=== PATIENT | male | born 1955 | race Caucasian/White ===

== ENCOUNTER → 2018-05-15 12:55 | Outpatient (CLI) | payer OTHER, SELFPAY ==
[2018-05-15 13:59] LABS: Alanine Aminotransferase 32 IU/L (21-72); Albumin 4.1 g/dL (3.5-5.0); Albumin Globulin Ratio 1.6 (1.0-2.8); Alkaline Phosphatase 52 U/L (38-126); Aspartate Aminotransferase 23 IU/L (17-59); BUN Creatinine Ratio 17.3 (6-22); Bilirubin Total 0.4 mg/dL (0.2-1.3); Blood Urea Nitrogen 19 mg/dL (9-20); Calcium 9.7 mg/dL (8.4-10.2); Carbon Dioxide 29 mmol/L (22-32); Chloride 106 mmol/L (98-107); Cholesterol 148 mg/dL (140-199); Estimated Glomerular Filt Rate > 60.0 mL/min (>60); Globulin 2.5 g/dL (1.7-4.1); Glucose 134 mg/dL (80-110); HDL Cholesterol 43 mg/dL (40-60); HEMOLYSIS < 15 (0-50); LDL Cholesterol Calculated 58 mg/dL (<100); Potassium 4.6 mmol/L (3.4-5.1); Sodium 144 mmol/L (137-145); Total Protein 6.6 g/dL (6.3-8.2); Triglycerides 237 mg/dL (35-150)
== END ==
PROVIDERS: PCP Internal Medicine; Visit Provider Internal Medicine Cardiovascular Disease
DX: I10 Essential (primary) hypertension (principal); E78.2 Mixed hyperlipidemia
CPT/HCPCS: 36415; 80053; 80061

== ENCOUNTER → 2019-03-07 07:38 | Outpatient (CLI) | payer OTHER, SELFPAY ==
[2019-03-07 08:55] LABS: Add Manual Diff / Slide Review NO; Basophils Absolute Auto 100 /uL (0-100); Basophils Percent Auto 0.7 % (0-2); Eosinophils Absolute Auto 300 /uL (0-450); Eosinophils Percent Auto 2.5 % (2-4); Hemoglobin 14.9 g/dL (13.5-17.5); Lymphocytes Absolute Auto 2800 /uL (1100-4500); Lymphocytes Percent Auto 24.2 % (25-40); Mean Corpuscular HGB Conc 34.6 % (30-36); Mean Corpuscular Volume 98.2 fL (80-100); Monocytes Absolute Auto 900 /uL (0-900); Monocytes Percent Auto 8.1 % (3-14); Neutrophils Absolute Auto 7400 /uL (1500-7000); Neutrophils Percent Auto 64.5 % (50-75); Platelet Count 181 X10^3/uL (150-400); Red Blood Cell Count 4.38 X10^6/uL (4.5-5.9); Red Cell Distribution Width 13.5 % (11.6-14.8); White Blood Cell Count 11.4 X10^3/uL (4.5-11.0)
[2019-03-07 09:10] LABS: HEMOLYSIS < 15 (0-50); Iron 115 ug/dL (49-181)
[2019-03-07 09:18] LABS: Alanine Aminotransferase 25 IU/L (21-72); Albumin 4.2 g/dL (3.5-5.0); Albumin Globulin Ratio 1.4 (1.0-2.8); Alkaline Phosphatase 63 U/L (38-126); Aspartate Aminotransferase 22 IU/L (17-59); Bilirubin Total 0.5 mg/dL (0.2-1.3); Blood Urea Nitrogen 17 mg/dL (9-20); Calcium 9.2 mg/dL (8.4-10.2); Carbon Dioxide 23 mmol/L (22-32); Chloride 108 mmol/L (98-107); Cholesterol 161 mg/dL (140-199); Estimated Glomerular Filt Rate > 60.0 mL/min (>60); Globulin 2.9 g/dL (1.7-4.1); Glucose 100 mg/dL (80-110); HDL Cholesterol 37 mg/dL (40-60); HEMOLYSIS < 15 (0-50); LDL Cholesterol Calculated 79 mg/dL (<100); Sodium 140 mmol/L (137-145); Total Protein 7.1 g/dL (6.3-8.2); Triglycerides 226 mg/dL (35-150)
[2019-03-07 09:21] LABS: Percent Iron Saturation 35 % (20-50); Total Iron Binding Capacity 329 ug/dL (261-462); Transferrin 250 mg/dL (206-381)
[2019-03-07 09:41] LABS: Thyroid Stimulating Hormone 4.84 uIU/mL (0.47-4.68)
== END ==
PROVIDERS: PCP Internal Medicine; Visit Provider Internal Medicine
DX: E83.19 Other disorders of iron metabolism (principal); R06.00 Dyspnea, unspecified; I25.10 Atherosclerotic heart disease of native coronary artery without angina pectoris; E78.5 Hyperlipidemia, unspecified
CPT/HCPCS: 36415; 80053; 80061; 81256; 82728; 83540; 83550; 84443; 85025

== ENCOUNTER → 2019-05-15 07:06 | Outpatient (CLI) | payer OTHER, SELFPAY ==
[2019-05-15 08:10] LABS: Add Manual Diff / Slide Review NO; Basophils Absolute Auto 100 /uL (0-100); Basophils Percent Auto 0.6 % (0-2); Eosinophils Absolute Auto 200 /uL (0-450); Eosinophils Percent Auto 2.3 % (2-4); Hematocrit 42.3 % (41-53); Hemoglobin 14.4 g/dL (13.5-17.5); Lymphocytes Absolute Auto 2600 /uL (1100-4500); Lymphocytes Percent Auto 25.4 % (25-40); Mean Corpuscular Hemoglobin 33.5 PG (26-34); Mean Corpuscular Volume 98.4 fL (80-100); Monocytes Absolute Auto 1000 /uL (0-900); Monocytes Percent Auto 9.4 % (3-14); Neutrophils Absolute Auto 6400 /uL (1500-7000); Neutrophils Percent Auto 62.3 % (50-75); Platelet Count 169 X10^3/uL (150-400); Red Cell Distribution Width 13.6 % (11.6-14.8); White Blood Cell Count 10.2 X10^3/uL (4.5-11.0)
[2019-05-15 08:38] LABS: Alanine Aminotransferase 30 IU/L (21-72); Albumin Globulin Ratio 1.4 (1.0-2.8); Alkaline Phosphatase 58 U/L (38-126); Aspartate Aminotransferase 25 IU/L (17-59); Bilirubin Total 0.6 mg/dL (0.2-1.3); Blood Urea Nitrogen 21 mg/dL (9-20); Calcium 9.2 mg/dL (8.4-10.2); Carbon Dioxide 26 mmol/L (22-32); Chloride 107 mmol/L (98-107); Cholesterol 147 mg/dL (140-199); Estimated Glomerular Filt Rate > 60.0 mL/min (>60); Globulin 2.9 g/dL (1.7-4.1); Glucose 115 mg/dL (80-110); HDL Cholesterol 35 mg/dL (40-60); HEMOLYSIS < 15 (0-50); LDL Cholesterol Calculated 85 mg/dL (<100); Potassium 4.3 mmol/L (3.4-5.1); Sodium 139 mmol/L (137-145); Total Protein 6.9 g/dL (6.3-8.2); Triglycerides 136 mg/dL (35-150)
== END ==
PROVIDERS: PCP Internal Medicine; Visit Provider Internal Medicine Cardiovascular Disease
DX: I10 Essential (primary) hypertension (principal); E78.2 Mixed hyperlipidemia
CPT/HCPCS: 36415; 80053; 80061; 85025

== ENCOUNTER → 2019-12-11 07:59 | Outpatient (CLI) | payer MEDICARE, OTHER, SELFPAY ==
[2019-12-11 08:53] LABS: Add Manual Diff / Slide Review NO; Basophils Absolute Auto 100 /uL (0-100); Basophils Percent Auto 0.7 % (0-2); Eosinophils Absolute Auto 200 /uL (0-450); Eosinophils Percent Auto 2.3 % (2-4); Hematocrit 42.2 % (41-53); Hemoglobin 14.8 g/dL (13.5-17.5); Lymphocytes Absolute Auto 2800 /uL (1100-4500); Lymphocytes Percent Auto 28.1 % (25-40); Mean Corpuscular HGB Conc 35.2 % (30-36); Mean Corpuscular Hemoglobin 34.1 PG (26-34); Monocytes Absolute Auto 900 /uL (0-900); Monocytes Percent Auto 9.2 % (3-14); Neutrophils Absolute Auto 5900 /uL (1500-7000); Neutrophils Percent Auto 59.7 % (50-75); Platelet Count 160 X10^3/uL (150-400); Red Blood Cell Count 4.35 X10^6/uL (4.5-5.9); Red Cell Distribution Width 13.6 % (11.6-14.8); White Blood Cell Count 9.9 X10^3/uL (4.5-11.0)
[2019-12-11 09:16] LABS: HEMOLYSIS < 15 (0-50); Iron 102 ug/dL (49-181)
[2019-12-11 09:27] LABS: Percent Iron Saturation 33 % (20-50); Total Iron Binding Capacity 309 ug/dL (261-462); Transferrin 248 mg/dL (206-381)
[2019-12-11 09:28] LABS: Alanine Aminotransferase 25 IU/L (<50); Albumin 4.2 g/dL (3.5-5.0); Albumin Globulin Ratio 1.4 (1.0-2.8); Alkaline Phosphatase 62 U/L (38-126); Aspartate Aminotransferase 24 IU/L (17-59); BUN Creatinine Ratio 14.5 (6-22); Bilirubin Total 0.6 mg/dL (0.2-1.3); Blood Urea Nitrogen 16 mg/dL (9-20); Calcium 9.2 mg/dL (8.4-10.2); Carbon Dioxide 23 mmol/L (22-32); Chloride 107 mmol/L (98-107); Cholesterol 150 mg/dL (140-199); Estimated Glomerular Filt Rate > 60.0 mL/min (>60); Globulin 2.9 g/dL (1.7-4.1); Glucose 115 mg/dL (80-110); HDL Cholesterol 33 mg/dL (40-60); HEMOLYSIS < 15 (0-50); LDL Cholesterol Calculated 81 mg/dL (<100); Potassium 3.9 mmol/L (3.4-5.1); Sodium 141 mmol/L (137-145); Total Protein 7.1 g/dL (6.3-8.2); Triglycerides 181 mg/dL (35-150)
[2019-12-11 09:50] LABS: TSH w/ Reflex to FT4 8.91 uIU/mL (0.47-4.68)
[2019-12-11 09:55] LABS: Ferritin 271 ng/mL (18-464)
[2019-12-11 10:29] LABS: Free T4, Direct Thyroxine 0.85 ng/dL (0.78-2.19)
== END ==
PROVIDERS: PCP Internal Medicine; Referring Provider Internal Medicine; Visit Provider Internal Medicine
DX: E78.5 Hyperlipidemia, unspecified (principal); E83.19 Other disorders of iron metabolism; F32.9 Major depressive disorder, single episode, unspecified
CPT/HCPCS: 36415; 80053; 80061; 82728; 83540; 83550; 84439; 84443; 85025

== ENCOUNTER → 2020-04-29 07:48 | Outpatient (CLI) | payer MEDICARE, OTHER, SELFPAY ==
[2020-04-29 09:29] LABS: Alanine Aminotransferase 19 IU/L (<50); BUN Creatinine Ratio 15.7 (6-22); Blood Urea Nitrogen 16 mg/dL (9-20); Calcium 9.3 mg/dL (8.4-10.2); Carbon Dioxide 23 mmol/L (22-32); Chloride 107 mmol/L (98-107); Cholesterol 139 mg/dL (140-199); Estimated Glomerular Filt Rate > 60.0 mL/min (>60); Glucose 116 mg/dL (80-110); HDL Cholesterol 37 mg/dL (40-60); HEMOLYSIS < 15 (0-50); LDL Cholesterol Calculated 77 mg/dL (<100); Potassium 4.1 mmol/L (3.4-5.1); Sodium 137 mmol/L (137-145); Triglycerides 123 mg/dL (35-150)
[2020-04-29 10:37] LABS: TSH w/ Reflex to FT4 4.47 uIU/mL (0.47-4.68)
== END ==
PROVIDERS: PCP Internal Medicine; Referring Provider Internal Medicine; Visit Provider Internal Medicine
DX: I10 Essential (primary) hypertension (principal); E78.5 Hyperlipidemia, unspecified; E03.9 Hypothyroidism, unspecified
CPT/HCPCS: 36415; 80048; 80061; 84443; 84460

== ENCOUNTER → 2020-05-11 15:20 | Outpatient (ROUT) | payer MEDICARE, OTHER, SELFPAY | PROVIDERS: Visit Provider Internal Medicine | DX: I25.10 Atherosclerotic heart disease of native coronary artery without angina pectoris (principal) | CPT/HCPCS: 87086 ==

== ENCOUNTER → 2020-06-21 16:07 | Outpatient (CLI) | payer MEDICARE, OTHER, SELFPAY | PROVIDERS: PCP Internal Medicine; Visit Provider Nurse Practitioner | DX: N41.0 Acute prostatitis (principal) | CPT/HCPCS: 87086 ==

== ENCOUNTER → 2021-03-17 11:20 | Outpatient (CLI) | payer MEDICARE, OTHER, SELFPAY ==
--- NOTE | 2021-03-17 | DI.RAD.S_ITS ---
PROCEDURE: XR ELBOW RT MIN 3V INDICATIONS: Pain in right elbow TECHNIQUE: 3 views of the elbow were acquired. COMPARISON: None. FINDINGS: Bones: No fractures or dislocations. No suspicious bony lesions. Soft tissues: No elbow joint effusion. No suspicious soft tissue calcifications. IMPRESSION: Normal right elbow. Dictated by: Cristofer Lees M.D. on 03/17/2021 at 18:19 Approved by: Cristofer Lees M.D. on 03/17/2021 at 18:21
== END ==
PROVIDERS: PCP Physician Assistant; Referring Provider Physician Assistant; Visit Provider Physician Assistant
DX: M25.521 Pain in right elbow (principal)
CPT/HCPCS: 73080

== ENCOUNTER → 2021-07-27 09:05 | Outpatient (CLI) | payer MEDICARE, OTHER, SELFPAY ==
--- NOTE | 2021-07-27 09:07 | DI.US.S_ITS ---
PROCEDURE: US ABD AORTA ANEURYSM SCREEN INDICATIONS: SCREENING TECHNIQUE: Real time scanning was performed of the aorta and iliac arteries, with image documentation. COMPARISON: None. FINDINGS: Aorta: Proximal aortic diameter measures 2.5 cm. Mid-aorta measures 2 cm. Distal aortic diameter is 2 cm. Iliac arteries: Right common iliac artery measures 1.8 cm. Left common iliac artery measures 1.9 cm. IMPRESSION: Negative for aneurysm. Dictated by: Endy Valencia M.D. on 07/27/2021 at 12:11 Approved by: Endy Valencia M.D. on 07/27/2021 at 12:11
== END ==
PROVIDERS: PCP Physician Assistant; Referring Provider Physician Assistant; Visit Provider Physician Assistant
DX: Z13.6 Encounter for screening for cardiovascular disorders (principal); F17.210 Nicotine dependence, cigarettes, uncomplicated
CPT/HCPCS: 76706

== ENCOUNTER → 2022-08-02 06:55 | Outpatient (CLI) | payer MEDICARE, OTHER, SELFPAY ==
[2022-08-02 08:04] LABS: Hematocrit 42.9 % (41-53); Hemoglobin 14.6 g/dL (13.5-17.5); Mean Corpuscular Hemoglobin 33.2 PG (26-34); Mean Corpuscular Volume 97.7 fL (80-100); Platelet Count 211 X10^3/uL (150-400); Red Blood Cell Count 4.39 X10^6/uL (4.5-5.9); Red Cell Distribution Width 13.2 % (11.6-14.8); White Blood Cell Count 12.3 X10^3/uL (4.5-11.0)
[2022-08-02 08:29] LABS: Alanine Aminotransferase 16 IU/L (<50); Albumin 3.9 g/dL (3.5-5.0); Albumin Globulin Ratio 1.4 (1.0-2.8); Alkaline Phosphatase 57 U/L (38-126); Aspartate Aminotransferase 19 IU/L (17-59); BUN Creatinine Ratio 12.8 (6-22); Bilirubin Total 0.5 mg/dL (0.2-1.3); Blood Urea Nitrogen 14 mg/dL (9-20); Calcium 8.9 mg/dL (8.4-10.2); Carbon Dioxide 22 mmol/L (22-32); Chloride 106 mmol/L (98-107); Cholesterol 203 mg/dL (140-199); Estimated Glomerular Filt Rate > 60 mL/min (>60); Globulin 2.8 g/dL (1.7-4.1); Glucose 100 mg/dL (80-110); HDL Cholesterol 36 mg/dL (40-60); HEMOLYSIS < 15 (0-50); LDL Cholesterol Calculated 126 mg/dL (<100); Potassium 4.4 mmol/L (3.4-5.1); Sodium 139 mmol/L (137-145); Total Protein 6.7 g/dL (6.3-8.2); Triglycerides 204 mg/dL (35-150)
== END ==
PROVIDERS: PCP Physician Assistant; Referring Provider Registered Nurse Critical Care Medicine; Visit Provider Registered Nurse Critical Care Medicine
DX: I25.10 Atherosclerotic heart disease of native coronary artery without angina pectoris (principal)
CPT/HCPCS: 36415; 80053; 80061; 85027

== ENCOUNTER → 2023-06-29 08:48 | Outpatient (CLI) | payer MEDICARE, OTHER, SELFPAY ==
[2023-06-29 10:58] LABS: Alanine Aminotransferase 25 IU/L (<50); Albumin 3.9 g/dL (3.5-5.0); Albumin Globulin Ratio 1.4 (1.0-2.8); Alkaline Phosphatase 49 U/L (38-126); Aspartate Aminotransferase 23 IU/L (17-59); BUN Creatinine Ratio 19.1 (6-22); Bilirubin Total 0.5 mg/dL (0.2-1.3); Blood Urea Nitrogen 22 mg/dL (9-20); Calcium 9.2 mg/dL (8.4-10.2); Carbon Dioxide 24 mmol/L (22-32); Chloride 103 mmol/L (98-107); Cholesterol 172 mg/dL (140-199); Estimated Glomerular Filt Rate > 60 mL/min (>60); Globulin 2.8 g/dL (1.7-4.1); Glucose 94 mg/dL (80-110); HDL Cholesterol 38 mg/dL (40-60); HEMOLYSIS < 15 (0-50); LDL Cholesterol Calculated 103 mg/dL (<100); Potassium 4.4 mmol/L (3.4-5.1); Sodium 135 mmol/L (137-145); Total Protein 6.7 g/dL (6.3-8.2); Triglycerides 154 mg/dL (35-150)
[2023-06-29 11:30] LABS: TSH w/ Reflex to FT4 3.93 uIU/mL (0.47-4.68)
== END ==
PROVIDERS: PCP Physician Assistant; Referring Provider Internal Medicine Cardiovascular Disease; Visit Provider Internal Medicine Cardiovascular Disease
DX: E03.4 Atrophy of thyroid (acquired) (principal); I10 Essential (primary) hypertension; E78.2 Mixed hyperlipidemia
CPT/HCPCS: 36415; 80053; 80061; 84443

== ENCOUNTER → 2023-10-29 12:42 | Outpatient (CLI) | payer MEDICARE, OTHER, SELFPAY ==
[2023-10-29 15:50] LABS: Alanine Aminotransferase 39 IU/L (<50); Albumin Globulin Ratio 1.5 (1.0-2.8); Alkaline Phosphatase 49 U/L (38-126); Aspartate Aminotransferase 34 IU/L (17-59); BUN Creatinine Ratio 17.5 (6-22); Bilirubin Total 0.6 mg/dL (0.2-1.3); Blood Urea Nitrogen 17 mg/dL (9-20); Calcium 9.4 mg/dL (8.4-10.2); Carbon Dioxide 23 mmol/L (22-32); Chloride 105 mmol/L (98-107); Cholesterol 98 mg/dL (140-199); Estimated Glomerular Filt Rate > 60 mL/min (>60); Globulin 2.7 g/dL (1.7-4.1); Glucose 142 mg/dL (80-110); HDL Cholesterol 41 mg/dL (40-60); HEMOLYSIS < 15 (0-50); LDL Cholesterol Calculated 33 mg/dL (<100); Potassium 3.8 mmol/L (3.4-5.1); Sodium 137 mmol/L (137-145); Total Protein 6.7 g/dL (6.3-8.2); Triglycerides 119 mg/dL (35-150)
[2023-10-29 16:17] LABS: TSH w/ Reflex to FT4 3.46 uIU/mL (0.47-4.68)
== END ==
PROVIDERS: PCP Physician Assistant; Referring Provider Internal Medicine Cardiovascular Disease; Visit Provider Internal Medicine Cardiovascular Disease
DX: E03.4 Atrophy of thyroid (acquired) (principal); I10 Essential (primary) hypertension; E78.2 Mixed hyperlipidemia
CPT/HCPCS: 36415; 80053; 80061; 84443

== ENCOUNTER → 2024-02-25 15:14 | Outpatient (CLI) | payer MEDICARE, OTHER, SELFPAY ==
--- NOTE | 2024-02-25 15:15 | DI.RAD.S_ITS ---
PROCEDURE: XR CHEST 2V INDICATIONS: cough/congestion 2 wk; [facility]cc smoker TECHNIQUE: 2 views of the chest were acquired. COMPARISON: None. FINDINGS: Surgical changes and devices: None. Lungs and pleura: Lungs are clear. No pleural effusions or pneumothorax. Mediastinum: Mediastinal contours are normal. Heart size is normal. Bones and chest wall: No suspicious bony abnormalities. Soft tissues appear unremarkable. IMPRESSION: No acute cardiopulmonary abnormality is seen. Dictated by: Serene Mullins M.D. on 02/25/2024 at 15:42 Approved by: Serene Mullins M.D. on 02/25/2024 at 15:43
== END ==
PROVIDERS: PCP Physician Assistant; Referring Provider Student in an Organized Health Care Education/Training Program; Visit Provider Student in an Organized Health Care Education/Training Program
DX: J06.9 Acute upper respiratory infection, unspecified (principal); F17.210 Nicotine dependence, cigarettes, uncomplicated
CPT/HCPCS: 71046

== ENCOUNTER → 2024-06-23 10:05 | Outpatient (CLI) | payer MEDICARE, OTHER, SELFPAY ==
--- NOTE | 2024-06-23 10:06 | DI.CT.S_ITS ---
PROCEDURE: CT LUNG LOW DOSE SCREENING INDICATIONS: 33 pyh TECHNIQUE: Noncontrast 2.0-2.5 mm thick sections acquired from the pulmonary apices to the posterior costophrenic angles. 7 mm thick axial MIP, and 5 mm coronal and sagittal reformats were then acquired. For radiation dose reduction, the following was used: automated exposure control, adjustment of mA and/or kV according to patient size. COMPARISON: None. FINDINGS: Image quality: Diagnostic. Lungs and Pleura: 4 millimeter nodule within the right lung apex (series 3, image 69). No other pulmonary nodules or masses. Multifocal areas of subpleural interstitial thickening and cystic changes along the anterior aspects of both upper lobes most likely related to scarring. No focal airspace opacity or consolidation. No evidence of pneumothorax or pleural effusion. Lower Neck: No enlarged lymph nodes. Thyroid: No thyroid nodules which require sonographic follow up, per consensus guidelines. Axillae: No enlarged lymph nodes. Chest Wall: Unremarkable. Bones: Unremarkable. Heart: Heart size is normal. No pericardial effusion. Extensive coronary artery calcifications. Thoracic Vessels: The aorta and pulmonary arteries demonstrate normal size. Mediastinum and Masha: No enlarged lymph nodes. Esophagus: No wall thickening. No hiatal hernia. Upper Abdomen: Visualized upper abdomen solid organs and bowel loops appear normal. IMPRESSION: No suspicious pulmonary nodules. LUNG-RADS 2; continued annual screening, if eligible. Clinically Significant Non-pulmonary Findings: Extensive coronary artery calcifications. Dictated by: Kevin Almonte M.D. on 06/23/2024 at 16:41 Approved by: Kevin Almonte M.D. on 06/23/2024 at 16:45
== END ==
LOC: CT 10:05
PROVIDERS: PCP Physician Assistant; Referring Provider Internal Medicine Critical Care Medicine; Visit Provider Internal Medicine Critical Care Medicine
DX: F17.210 Nicotine dependence, cigarettes, uncomplicated (principal); Z12.2 Encounter for screening for malignant neoplasm of respiratory organs; I25.10 Atherosclerotic heart disease of native coronary artery without angina pectoris
CPT/HCPCS: 71271

== ENCOUNTER → 2024-08-26 13:02 | Outpatient (CLI) | payer MEDICARE, OTHER, SELFPAY ==
[2024-08-26 14:11] LABS: Alanine Aminotransferase 26 IU/L (<50); Albumin Globulin Ratio 1.7 (1.0-2.8); Alkaline Phosphatase 49 U/L (38-126); Aspartate Aminotransferase 24 IU/L (17-59); BUN Creatinine Ratio 17.1 (6-22); Bilirubin Total 0.8 mg/dL (0.2-1.3); Blood Urea Nitrogen 19 mg/dL (9-20); Carbon Dioxide 25 mmol/L (22-32); Chloride 108 mmol/L (98-107); Cholesterol 106 mg/dL (140-199); Estimated Glomerular Filt Rate > 60 mL/min (>60); Globulin 2.4 g/dL (1.7-4.1); Glucose 144 mg/dL (80-110); HDL Cholesterol 48 mg/dL (40-60); HEMOLYSIS < 15 (0-50); LDL Cholesterol Calculated 33 mg/dL (<100); Potassium 3.9 mmol/L (3.4-5.1); Sodium 140 mmol/L (137-145); Total Protein 6.4 g/dL (6.3-8.2); Triglycerides 127 mg/dL (35-150)
== END ==
PROVIDERS: PCP Physician Assistant; Referring Provider Internal Medicine Cardiovascular Disease; Visit Provider Internal Medicine Cardiovascular Disease
DX: I10 Essential (primary) hypertension (principal); E78.2 Mixed hyperlipidemia
CPT/HCPCS: 36415; 80053; 80061

== ENCOUNTER → 2024-09-05 06:55 | Outpatient (CLI) | payer MEDICARE, OTHER, SELFPAY ==
--- NOTE | 2024-09-05 06:56 | DI.US.S_ITS ---
PROCEDURE: US CAROTID DOPPLER BI INDICATIONS: bilateral carotid disease TECHNIQUE: Color and pulse Doppler interrogation was performed of both carotid systems, with image documentation and velocity measurements. COMPARISON: None. FINDINGS: Stenosis calculations are based on SRU (Society of Radiologists in Ultrasound) criteria. Right side: Brachial blood pressure: 138/71 mm Hg. Common carotid artery peak systolic velocity: 63 cm/sec. Internal carotid artery peak systolic velocity: 153 cm/sec. Internal carotid artery end diastolic velocity: 44 cm/sec. External carotid artery peak systolic velocity: 64 cm/sec. ICA/CCA peak systolic ratio: 2.5 . Sanchez scale imaging description: Minimal plaque at the common carotid bulb Percent internal carotid artery stenosis: 50-69% stenosis . Vertebral artery: Flow direction is antegrade. Left side: Brachial blood pressure: 134/72 mm Hg. Common carotid artery peak systolic velocity: 101 cm/sec. Internal carotid artery peak systolic velocity: 77 cm/sec. Internal carotid artery end diastolic velocity: 18 cm/sec. External carotid artery peak systolic velocity: 98 cm/sec. ICA/CCA peak systolic ratio: 0.8 . Sanchez scale imaging description: Mild-moderate plaque Percent internal carotid artery stenosis: Less than 50% stenosis . Vertebral artery: Flow direction is antegrade. IMPRESSION: 1. 50-69% right internal carotid artery stenosis, although this may be artifactually elevated due to tortuosity of the internal carotid artery. 2. Less than 50% left internal carotid artery stenosis. Dictated by: Douglas Senior M.D. on 09/05/2024 at 14:55 Approved by: Douglas Senior M.D. on 09/05/2024 at 14:59
== END ==
PROVIDERS: PCP Physician Assistant; Referring Provider Internal Medicine Cardiovascular Disease; Visit Provider Internal Medicine Cardiovascular Disease
DX: I65.23 Occlusion and stenosis of bilateral carotid arteries (principal)
CPT/HCPCS: 93880

== ENCOUNTER → 2024-12-14 13:13 | Outpatient (CLI) | payer MEDICARE, OTHER, SELFPAY ==
--- NOTE | 2024-12-14 13:15 | DI.MRI.S_ITS ---
PROCEDURE: MR LUMBAR SPINE WO CON INDICATIONS: lumbar radiculopathy TECHNIQUE: Noncontrast sagittal T1 spin echo and T2 fast echo, sagittal STIR, and T2 fast spin echo through the lumbar spine. In cases with scoliosis, additional coronal T2 fast spin echo may be performed. COMPARISON: [facility], CR, XR LUMBAR SPINE 2 OR 3 VIEWS, 12/10/2024, 10:11. FINDINGS: Image quality: Excellent. Alignment and Curvature: There is trace retrolisthesis of T12 on L1, L1 on L2, L2 on L3. Bone Marrow: Marrow is of normal overall signal. No acute vertebral body compression fractures. Spinal Cord: Conus medullaris terminates at the L1 level. Visualized cord demonstrates normal signal and size. Paraspinous Soft Tissues: No paravertebral masses. Discs: [id number] disc desiccation most severe at L4-5. T12-L1: Minimal disc bulge without spinal stenosis or foraminal narrowing. L1-L2: Mild left foraminal narrowing with facet and ligamentum flavum hypertrophy. L2-L3: Mild disc bulge without spinal stenosis. Mild bilateral foraminal narrowing with facet and ligamentum flavum hypertrophy. L3-L4: Mild disc bulge with [id number] spinal stenosis. There is mild narrowing through the subarticular recesses bilaterally, left greater than right. Mild left foraminal narrowing. L4-L5: Disc bulge with extrusion extending cranially measuring approximately 1.1 cm. It is causing significant compromise of the left lateral recess as well as moderate spinal stenosis. Moderate left foraminal narrowing with facet and ligamentum flavum hypertrophy. L5-S1: Mild disc bulge including a left foraminal component. There is severe proximal left foraminal narrowing with facet and ligamentum flavum hypertrophy. IMPRESSION: Multilevel disc bulges. Prominent extrusion at L4-5 extending cranially with prominent compromise of the left lateral recess as well as moderate spinal stenosis. Dictated by: Mahnaz Hong M.D. on 12/15/2024 at 15:37 Approved by: Mahnaz Hogn M.D. on 12/15/2024 at 15:40
== END ==
PROVIDERS: PCP Physician Assistant; Referring Provider Orthopaedic Surgery; Visit Provider Orthopaedic Surgery
DX: M51.16 Intervertebral disc disorders with radiculopathy, lumbar region (principal); M51.17 Intervertebral disc disorders with radiculopathy, lumbosacral region; M48.061 Spinal stenosis, lumbar region without neurogenic claudication; M48.07 Spinal stenosis, lumbosacral region
CPT/HCPCS: 72148

== ENCOUNTER 2024-12-15 11:17 | Emergency (ER) | payer MEDICARE, OTHER, SELFPAY ==
[2024-12-15] VITALS (32 sets, daily range): BP systolic 148–220; BP diastolic 67–112; PULSE 40–87; RESP 13–30; TEMP 36.5; O2SAT 95–99
--- NOTE | 2024-12-15 11:29 | ED_ITS ---
HPI - Extremity Injury (Lower) <Amadou Mullins PA-C - Last Filed: 12/15/24 19:36> General Chief Complaint: Extremity Injury, Lower Stated Complaint: Leg Pain Time Seen by Provider: 12/15/24 11:29 Source: patient and EMS Mode of arrival: EMS History of Present Illness HPI Narrative: 69-year-old male with past medical history myocardial infarction, status post stents, obstructive sleep apnea presents to the ED with worsening left hip and leg pain. Patient has seen ortho specialist Dr. Meenakshi Rodriguez, a lumbar MRI was performed yesterday, not yet read by Radiology. 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 Patient endorses some tingling. No numbness, weakness. Patient is able to bear weight and walk, although painful. No urinary hesitancy, urinary incontinence, bowel incontinence. Patient endorses 8/10 pain. Related Data Home Medications Medication Instructions Recorded Confirmed bisoprolol fumarate 5 mg tablet 2.5 mg PO BEDTIME 04/19/23 12/15/24 citalopram 20 mg tablet 20 mg PO DAILY 04/19/23 12/15/24 ezetimibe 10 mg tablet 10 mg PO BEDTIME 04/19/23 12/15/24 levothyroxine 25 mcg tablet 25 mcg PO DAILY 04/19/23 12/15/24 pantoprazole 20 mg tablet,delayed 20 mg PO DAILY 04/19/23 12/15/24 release rosuvastatin 20 mg tablet 20 mg PO BEDTIME 12/15/24 12/15/24 Previous Rx's Medication Instructions Recorded hydrocodone 5 mg-acetaminophen 325 1 tab PO Q6H PRN pain #10 tabs 12/15/24 mg tablet Allergies Allergy/AdvReac Type Severity Reaction Status Date / Time No Known Drug Allergies Allergy Verified 10/23/24 08:58 Review of Systems <Amadou Mullins PA-C - Last Filed: 12/15/24 19:36> Constitutional Constitutional: Denies chills, Denies fatigue, Denies fever(s), Denies frequent falls, Denies lethargy and Denies weakness Eyes Eyes: Denies change in vision, Denies eye discharge, Denies irritation and Denies loss of vision ENT Ears, Nose, Mouth, and Throat: Denies change in voice, Denies dizziness, Denies neck pain, Denies sore throat and Denies throat swelling Cardiovascular Cardiovascular: Denies chest pain, Denies irregular heart rhythm, Denies lightheadedness, Denies palpitations, Denies dyspnea, Denies dyspnea on exertion and Denies orthopnea Respiratory Respiratory: Denies cough, Denies dyspnea, Denies dyspnea on exertion and Denies wheezing Gastrointestinal Gastrointestinal: Denies abdominal pain, Denies change in bowel habits, Denies diarrhea, Denies nausea and Denies vomiting Musculoskeletal Musculoskeletal: Denies neck pain and Denies numbness Comments: Left hip and leg pain, tingling. Integumentary/Breasts Skin/Breast: Denies pruritus, Denies erythema, Denies rash and Denies wounds Neurologic Neurologic: Denies behavioral changes, Denies confusion, Denies dizziness, Denies frequent falls, Denies loss of vision, Denies numbness and Denies weakness Psychiatric Psychiatric: Denies anxiety, Denies behavioral changes, Denies confusion, Denies depression, Denies homicidal ideation and Denies suicidal ideation Endocrine Endocrine: Denies fatigue, Denies flushing and Denies palpitations Hematologic/Lymphatic Hematologic/Lymphatic: Denies easy bruising Allergic/Immunologic Allergic/Immunologic: Denies urticaria, Denies throat swelling and Denies wheezing Patient History <Amadou Mullins PA-C - Last Filed: 12/15/24 19:36> Medical History (Updated 12/15/24 @ 21:16 by Laurita Minor DO) Prostatitis Social History Smoking Status: Current every day smoker Smoking Status: Current every day smoker Exam <Amadou Mullins PA-C - Last Filed: 12/15/24 19:36> Narrative Exam Narrative: Const General:?cooperative, healthy appearing and comfortable [facility] Head:?normal to inspection Ears:?hearing grossly normal bilaterally Nose:?external nose normal Face and sinus:?normal facial exam and sinuses nontender Mouth:?oral mucosae normal Throat:?posterior oropharynx normal Eyes General:?appearance normal, both eyes and all related structures Neck Neck:?normal visual inspection and no lymphadenopathy noted Resp Effort & Inspection:?normal respiratory effort Auscultation:?clear to auscultation bilaterally Cardio Rate:?regular rate Rhythm:?regular rhythm Musculoskeletal No midline tenderness to palpation. No paraspinal tenderness to palpation. There is tenderness to the left hip. No bruising, deformities. Patient is able to bear weight and walk. Neurovascularly intact. Neuro General:?patient alert, patient awake and patient oriented x3 Initial Vital Signs Initial Vital Signs: Vital Signs Temperature 97.7 F 12/15/24 11:11 Pulse Rate 87 12/15/24 11:11 Respiratory Rate 16 12/15/24 11:11 Blood Pressure 199/98 H 12/15/24 11:11 Pulse Oximetry 99 12/15/24 11:11 Oxygen Delivery Method Room Air 12/15/24 11:11 <Laurita Minor DO - Last Filed: 12/16/24 01:26> Initial Vital Signs Initial Vital Signs: Vital Signs Temperature 97.7 F 12/15/24 11:11 Pulse Rate 87 12/15/24 11:11 Respiratory Rate 16 12/15/24 11:11 Blood Pressure 199/98 H 12/15/24 11:11 Pulse Oximetry 99 12/15/24 11:11 Oxygen Delivery Method Room Air 12/15/24 11:11 Course <Amadou Mullins PA-C - Last Filed: 12/15/24 19:36> Orders Ordered: ED Orders 12/15/24 18:02 XR chest 1V Stat 12/15/24 18:40 Complete Blood Count AUTO DIFF Stat Comprehensive Metabolic Panel Stat Lipase Stat Magnesium Stat NT-proBNP (BNP-Adult 18+) Stat PTT Partial Thromboplastin Philipp Stat Prothrombin Time INR Stat Troponin & CK Cardiac Panel Stat 12/15/24 20:40 EKG-12 Lead Stat 12/15/24 20:41 Trop I [Troponin I] Stat Discontinued Medications Acetaminophen (Acetaminophen 325 Mg Tablet) 975 mg PO NOW ONE Stop: 12/15/24 12:05 Last Admin: 12/15/24 12:22 Dose: 975 mg Documented By: RB Hydrocodone Bitart/Acetaminophen (Hydrocodone/Acet 5/325 Tablet) 1 tab PO NOW ONE Stop: 12/15/24 13:59 Last Admin: 12/15/24 14:02 Dose: 1 tab Documented By: ES Hydrocodone Bitart/Acetaminophen (Hydrocodone/Acet 5/325 Prepack) 1 bottle MISC DIRECTED ONE Stop: 12/15/24 21:14 Last Admin: 12/15/24 21:18 Dose: 1 bottle Documented By: FARZANA Aspirin (Aspirin 81 Mg Chew Tab) 324 mg PO NOW ONE Stop: 12/15/24 16:06 Last Admin: 12/15/24 16:10 Dose: Not Given Documented By: KELLY Ketorolac Tromethamine (Ketorolac 30 Mg/Ml Vial) 30 mg IM NOW ONE Stop: 12/15/24 12:05 Last Admin: 12/15/24 12:22 Dose: 30 mg Documented By: KELLY Oxycodone HCl (Oxycodone Ir 5 Mg Tablet) 5 mg PO NOW ONE Stop: 12/15/24 21:14 Last Admin: 12/15/24 21:17 Dose: 5 mg Documented By: FARZANA Vital Signs Vital signs: Vital Signs - 8 hr 12/15/24 17:40 12/15/24 18:00 12/15/24 18:15 Pulse Rate 42 L 42 L 41 L Respiratory Rate 25 H 25 H 17 Blood Pressure 148/67 H 173/112 H 173/79 H Pulse Oximetry 96 98 97 Oxygen Delivery Method Room Air Room Air Room Air 12/15/24 18:30 12/15/24 18:45 12/15/24 19:01 Pulse Rate 43 L 46 L 47 L Respiratory Rate 22 24 20 Blood Pressure 178/79 H 155/75 H Pulse Oximetry 98 97 98 Oxygen Delivery Method Room Air Room Air 12/15/24 19:01 12/15/24 19:30 12/15/24 19:31 Pulse Rate 46 L 46 L Respiratory Rate 27 H 26 H Blood Pressure 165/84 H Pulse Oximetry 96 96 Oxygen Delivery Method 12/15/24 19:31 12/15/24 20:00 12/15/24 20:01 Pulse Rate 50 L 51 L Respiratory Rate 29 H 30 H Blood Pressure 156/77 H Pulse Oximetry 96 97 Oxygen Delivery Method 12/15/24 20:01 12/15/24 20:30 12/15/24 20:31 Pulse Rate 47 L 47 L Respiratory Rate 18 23 Blood Pressure 220/90 H Pulse Oximetry 96 97 Oxygen Delivery Method 12/15/24 20:31 12/15/24 20:58 12/15/24 20:58 Pulse Rate 43 L Respiratory Rate 29 H Blood Pressure 189/81 H 171/74 H Pulse Oximetry 97 Oxygen Delivery Method 12/15/24 21:00 12/15/24 21:00 Pulse Rate 43 L Respiratory Rate 23 Blood Pressure 167/77 H Pulse Oximetry 97 Oxygen Delivery Method <Laurita Minor, - Last Filed: 12/16/24 01:26> Orders Ordered: ED Orders 12/15/24 18:02 XR chest 1V Stat 12/15/24 18:40 Complete Blood Count AUTO DIFF Stat Comprehensive Metabolic Panel Stat Lipase Stat Magnesium Stat NT-proBNP (BNP-Adult 18+) Stat PTT Partial Thromboplastin Philipp Stat Prothrombin Time INR Stat Troponin & CK Cardiac Panel Stat 12/15/24 20:40 EKG-12 Lead Stat 12/15/24 20:41 Trop I [Troponin I] Stat Discontinued Medications Acetaminophen (Acetaminophen 325 Mg Tablet) 975 mg PO NOW ONE Stop: 12/15/24 12:05 Last Admin: 12/15/24 12:22 Dose: 975 mg Documented By: KELLY Hydrocodone Bitart/Acetaminophen (Hydrocodone/Acet 5/325 Tablet) 1 tab PO NOW ONE Stop: 12/15/24 13:59 Last Admin: 12/15/24 14:02 Dose: 1 tab Documented By: CAROL Hydrocodone Bitart/Acetaminophen (Hydrocodone/Acet 5/325 Prepack) 1 bottle MISC DIRECTED ONE Stop: 12/15/24 21:14 Last Admin: 12/15/24 21:18 Dose: 1 bottle Documented By: FARZANA Aspirin (Aspirin 81 Mg Chew Tab) 324 mg PO NOW ONE Stop: 12/15/24 16:06 Last Admin: 12/15/24 16:10 Dose: Not Given Documented By: RB Ketorolac Tromethamine (Ketorolac 30 Mg/Ml Vial) 30 mg IM NOW ONE Stop: 12/15/24 12:05 Last Admin: 12/15/24 12:22 Dose: 30 mg Documented By: RB Oxycodone HCl (Oxycodone Ir 5 Mg Tablet) 5 mg PO NOW ONE Stop: 12/15/24 21:14 Last Admin: 12/15/24 21:17 Dose: 5 mg Documented By: FARZANA Vital Signs Vital signs: Vital Signs - 8 hr 12/15/24 17:40 12/15/24 18:00 12/15/24 18:15 Pulse Rate 42 L 42 L 41 L Respiratory Rate 25 H 25 H 17 Blood Pressure 148/67 H 173/112 H 173/79 H Pulse Oximetry 96 98 97 Oxygen Delivery Method Room Air Room Air Room Air 12/15/24 18:30 12/15/24 18:45 12/15/24 19:01 Pulse Rate 43 L 46 L 47 L Respiratory Rate 22 24 20 Blood Pressure 178/79 H 155/75 H Pulse Oximetry 98 97 98 Oxygen Delivery Method Room Air Room Air 12/15/24 19:01 12/15/24 19:30 12/15/24 19:31 Pulse Rate 46 L 46 L Respiratory Rate 27 H 26 H Blood Pressure 165/84 H Pulse Oximetry 96 96 Oxygen Delivery Method 12/15/24 19:31 12/15/24 20:00 12/15/24 20:01 Pulse Rate 50 L 51 L Respiratory Rate 29 H 30 H Blood Pressure 156/77 H Pulse Oximetry 96 97 Oxygen Delivery Method 12/15/24 20:01 12/15/24 20:30 12/15/24 20:31 Pulse Rate 47 L 47 L Respiratory Rate 18 23 Blood Pressure 220/90 H Pulse Oximetry 96 97 Oxygen Delivery Method 12/15/24 20:31 12/15/24 20:58 12/15/24 20:58 Pulse Rate 43 L Respiratory Rate 29 H Blood Pressure 189/81 H 171/74 H Pulse Oximetry 97 Oxygen Delivery Method 12/15/24 21:00 12/15/24 21:00 Pulse Rate 43 L Respiratory Rate 23 Blood Pressure 167/77 H Pulse Oximetry 97 Oxygen Delivery Method MDM - Extremity Injury (Lower) <Amadou Mullins PA-C - Last Filed: 12/15/24 19:36> Lab Data 12/15/24 18:40 12/15/24 18:40 Labs: Lab Results 12/15/24 12/15/24 Range/Units 18:40 20:41 WBC 16.8 H (4.5-11.0) X10^3/uL RBC 4.24 L (4.5-5.9) X10^6/uL Hgb 14.1 (13.5-17.5) g/dL Hct 40.8 L (41-53) % MCV 96.0 (80-100) fL MCH 33.2 (26-34) PG MCHC 34.6 (30-36) % RDW 13.8 (11.6-14.8) % Plt Count 197 (150-400) X10^3/uL Neut % (Auto) 67.1 (50-75) % Lymph % (Auto) 23.8 L (25-40) % [place] % (Auto) 8.6 (3-14) % Eos % (Auto) 0.3 L (2-4) % Baso % (Auto) 0.2 (0-2) % Neut # (Auto) 81770 H (4566-0392) /uL Lymph # (Auto) 4000 (7140-6335) /uL [place] # (Auto) 1400 H (0-900) /uL Eos # (Auto) 100 (0-450) /uL Baso # (Auto) 0 (0-100) /uL PT 11.5 (9.4-12.5) SECONDS INR 1.0 (0.9-1.3) APTT 27 (25.1-36.5) SECONDS Sodium 136 L (137-145) mmol/L Potassium 4.5 (3.4-5.1) mmol/L Chloride 103 (98-107) mmol/L Carbon Dioxide 22 (22-32) mmol/L BUN 33 H (9-20) mg/dL Creatinine 1.26 H (0.66-1.25) mg/dL Estimated GFR > 60 (>60) mL/min BUN/Creatinine Ratio 26.2 H (6-22) Glucose 103 (80-110) mg/dL Calcium 9.0 (8.4-10.2) mg/dL Magnesium 1.9 (1.6-2.3) mg/dL Total Bilirubin 0.7 (0.2-1.3) mg/dL AST 37 (17-59) IU/L ALT 49 (<50) IU/L Alkaline Phosphatase 50 (38-126) U/L Total Creatine Kinase 39 L (55-170) U/L Troponin I 0.037 H 0.038 H (0.01-0.034) ng/mL NT-Pro-B Natriuret Pep 2010 H (<125) pg/mL Total Protein 7.0 (6.3-8.2) g/dL Albumin 4.4 (3.5-5.0) g/dL Globulin 2.6 (1.7-4.1) g/dL Albumin/Globulin Ratio 1.7 (1.0-2.8) Lipase 67 (23-300) U/L MDM Narrative Medical decision making narrative: 69-year-old male with past medical history obstructive sleep apnea presents to the ED with worsening left hip and leg pain. Radiology has been called to expedite reading the MRI. Will also obtain a hip x-ray to rule out fracture/dislocation. Will treat pain with ketorolac, Tylenol. X-ray shows no acute bony abnormality. Shows mild bilateral hip joint degeneration. MRI shows multilevel disc bulges. Prominent extrusion at L4-5 extending cranially with prominent compromise of the left lateral recess as well as moderate spinal stenosis. Repeat vitals on patient shows patient bradycardic to 40. Patient is also hypertensive with systolic in the 170s to 180s. EKG was obtained which shows no acute ST-T changes, no heart blocks. Patient was given some food, caffeine. Patient continues to be bradycardic, but asymptomatic. ACS workup started. WBC elevated at 16.8. Slight DYLAN with creatinine at 1.26. Troponin elevation to 0.037. BNP elevated to 2010. CXR without acute change Patient to receive repeat EKG, troponin. Did consider urolithiasis. Will obtain urine. Patient signed out to Dr. Barrera Minor. Medical records reviewed: Yes <Laurita Minor DO - Last Filed: 12/16/24 01:26> Lab Data Labs: Lab Results 12/15/24 12/15/24 Range/Units 18:40 20:41 WBC 16.8 H (4.5-11.0) X10^3/uL RBC 4.24 L (4.5-5.9) X10^6/uL Hgb 14.1 (13.5-17.5) g/dL Hct 40.8 L (41-53) % MCV 96.0 (80-100) fL MCH 33.2 (26-34) PG MCHC 34.6 (30-36) % RDW 13.8 (11.6-14.8) % Plt Count 197 (150-400) X10^3/uL Neut % (Auto) 67.1 (50-75) % Lymph % (Auto) 23.8 L (25-40) % [place] % (Auto) 8.6 (3-14) % Eos % (Auto) 0.3 L (2-4) % Baso % (Auto) 0.2 (0-2) % Neut # (Auto) 14001 H (5261-3215) /uL Lymph # (Auto) 4000 (5713-6252) /uL [place] # (Auto) 1400 H (0-900) /uL Eos # (Auto) 100 (0-450) /uL Baso # (Auto) 0 (0-100) /uL PT 11.5 (9.4-12.5) SECONDS INR 1.0 (0.9-1.3) APTT 27 (25.1-36.5) SECONDS Sodium 136 L (137-145) mmol/L Potassium 4.5 (3.4-5.1) mmol/L Chloride 103 (98-107) mmol/L Carbon Dioxide 22 (22-32) mmol/L BUN 33 H (9-20) mg/dL Creatinine 1.26 H (0.66-1.25) mg/dL Estimated GFR > 60 (>60) mL/min BUN/Creatinine Ratio 26.2 H (6-22) Glucose 103 (80-110) mg/dL Calcium 9.0 (8.4-10.2) mg/dL Magnesium 1.9 (1.6-2.3) mg/dL Total Bilirubin 0.7 (0.2-1.3) mg/dL AST 37 (17-59) IU/L ALT 49 (<50) IU/L Alkaline Phosphatase 50 (38-126) U/L Total Creatine Kinase 39 L (55-170) U/L Troponin I 0.037 H 0.038 H (0.01-0.034) ng/mL NT-Pro-B Natriuret Pep 2010 H (<125) pg/mL Total Protein 7.0 (6.3-8.2) g/dL Albumin 4.4 (3.5-5.0) g/dL Globulin 2.6 (1.7-4.1) g/dL Albumin/Globulin Ratio 1.7 (1.0-2.8) Lipase 67 (23-300) U/L Imaging Data MRI : Radiologist's Impression: [address] [address] Magnetic Resonance Report Signed Patient: Steven Hsu MR#: [id number] : 1955 Acct:[id number] Age/Sex: 69 / M Date of Service: 12/14/24 Loc: MRI Accession Number: [id number] Procedure: MR lumbar spine wo con Ordering Provider: Cindi Rodriguez MD PROCEDURE: MR LUMBAR SPINE WO CON INDICATIONS: lumbar radiculopathy TECHNIQUE: Noncontrast sagittal T1 spin echo and T2 fast echo, sagittal STIR, and T2 fast spin echo through the lumbar spine. In cases with scoliosis, additional coronal T2 fast spin echo may be performed. COMPARISON: [facility], CR, XR LUMBAR SPINE 2 OR 3 VIEWS, 12/10/2024, 10:11. FINDINGS: Image quality: Excellent. Alignment and Curvature: There is trace retrolisthesis of T12 on L1, L1 on L2, L2 on L3. Bone Marrow: Marrow is of normal overall signal. No acute vertebral body compression fractures. Spinal Cord: Conus medullaris terminates at the L1 level. Visualized cord demonstrates normal signal and size. Paraspinous Soft Tissues: No paravertebral masses. Discs: [id number] disc desiccation most severe at L4-5. T12-L1: Minimal disc bulge without spinal stenosis or foraminal narrowing. L1-L2: Mild left foraminal narrowing with facet and ligamentum flavum hypertrophy. L2-L3: Mild disc bulge without spinal stenosis. Mild bilateral foraminal narrowing with facet and ligamentum flavum hypertrophy. L3-L4: Mild disc bulge with [id number]-ba-avairbmj spinal stenosis. There is mild narrowing through the subarticular recesses bilaterally, left greater than right. Mild left foraminal narrowing. L4-L5: Disc bulge with extrusion extending cranially measuring approximately 1.1 cm. It is causing significant compromise of the left lateral recess as well as moderate spinal stenosis. Moderate left foraminal narrowing with facet and ligamentum flavum hypertrophy. L5-S1: Mild disc bulge including a left foraminal component. There is severe proximal left foraminal narrowing with facet and ligamentum flavum hypertrophy. IMPRESSION: Multilevel disc bulges. Prominent extrusion at L4-5 extending cranially with prominent compromise of the left lateral recess as well as moderate spinal stenosis. ECG Data Attestation: I personally reviewed and interpreted this ECG as follows: Interpretation: 15:58-- not in cardioserver-sinus rhythm rate 40 CT interval 152 QRS [address] changes no priors to compare 20:43 Dr. 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 Radiology has been called to expedite reading the MRI. Will also obtain a hip x-ray to rule out fracture/dislocation. Will treat pain with ketorolac, Tylenol. X-ray shows no acute bony abnormality. Shows mild bilateral hip joint degeneration. MRI shows multilevel disc bulges. Prominent extrusion at L4-5 extending cranially with prominent compromise of the left lateral recess as well as moderate spinal stenosis. Repeat vitals on patient shows patient bradycardic to 40. Patient is also hypertensive with systolic in the 170s to 180s. EKG was obtained which shows no acute ST-T changes, no heart blocks. Patient was given some food, caffeine. Patient continues to be bradycardic, but asymptomatic. ACS workup started. WBC elevated at 16.8. Slight DYLAN with creatinine at 1.26. Troponin elevation to 0.037. BNP elevated to 2010. CXR without acute change Patient to receive repeat EKG, troponin. Did consider urolithiasis. Will obtain urine. Patient signed out to Dr. Barrera Minor. Medical records reviewed: Yes Dr. Minor-I have resumed care from home. Patient has had ongoing left leg pain for a couple of weeks. Had MRI yesterday which shows multilevel disc bulges prominent extrusion at L4-L5 extending cranially with prominent compromise of the left lateral recess as well as moderate spinal stenosis. He is here today for increasing pain. He has been on prednisone which may explain his white count of 16. PA was concerned about bradycardia. EKGs has been reviewed by myself does show sinus bradycardia no prolonged QTC no AV sirisha block. Patient was completely asymptomatic dizziness or lightheadedness. He does not seem to be on any AV sirisha blockers. He does report significant cardiac history he has a stent in his heart not in 2011 and reports stroke as well. Blood work does show elevation in troponin 0.037, 0.038 without ischemic changes on his EKGs. Repeating his troponin. But patient is absolutely asymptomatic His left leg has a good peripheral pulse no significant swelling it is warm to touch he has no significant pain in his hip. Troponin remains stable he was completely asymptomatic ambulatory he has had food here in the emergency department Discharge Plan Departure Patient Disposition: Home Clinical Impression: Bradycardia, Sciatica Instructions: DI for Sciatica, DI for Bradycardia Activity Restrictions/Additional Instructions: *You have been diagnosed with bradycardia and sciatica *What to do: At this time your heart rate is low but you do not seem to be having any problems from it. Your leg and back pain seem to be related to nerve issues. Please continue to follow up with Orthopedic *Continue to take medications as directed Rigby 1 tablet every 4-6 hours if needed for severe pain-- don't take until 3am *Follow up with your primary care provider in 2-3 days or call [phone] *Return to ER if you should have increasing leg weakness loss of urine dizziness lightheadedness passing or any new, worsening or concerning symptoms CONTROLLED SUBSTANCE DISCHARGE (Narcotoic/benzodiazepine/Flexeril/Phenergan) 1. You have been prescribed narcotic medications, it does have acetaminophen/Tylenol/paracetamol in it, DO NOT TAKE MORE THAN 4,00mg in 24 hours of Tylenol. TRAMADOL DOES NOT CONTAIN TYLENOL 2. Please understand that we cannot provide further refills of narcotics, benzodiazepines or controlled substances through the ED and her pain management will need to be through your provider. 3. While on these medications you cannot drive or operate heavy machinery. 4. You cannot sign legal documents or perform any duties such as this. 5. As long as you're taking opiate pain medications he should also be taking a stool softener such as Colace, Dulcolax, MiraLAX or prune juice, to help avoid constipation. Prescriptions: New hydrocodone-acetaminophen 5-325 mg tablet 1 tab PO Q6H PRN (Reason: pain) Qty: 10 0RF No Action ezetimibe 10 mg tablet 10 mg PO BEDTIME citalopram 20 mg tablet 20 mg PO DAILY Patient Comments: TAKE 1 TABLET BY MOUTH DAILY levothyroxine 25 mcg tablet 25 mcg PO DAILY pantoprazole 20 mg tablet,delayed release (DR/EC) 20 mg PO DAILY Patient Comments: TAKE 1 TABLET BY MOUTH DAILY bisoprolol fumarate 5 mg tablet 2.5 mg PO BEDTIME rosuvastatin 20 mg tablet 20 mg PO BEDTIME Referrals: Anabela Prakash PA-C [Primary Care Provider] - Stand Alone Forms: Patient Portal/API/Survey
--- NOTE | 2024-12-15 12:03 | DI.RAD.S_ITS ---
PROCEDURE: XR HIP W PEL IF DONE RAUL MIN 4V INDICATIONS: Hip pain TECHNIQUE: AP pelvis with lateral view(s) of the bilateral hip(s). COMPARISON: None. FINDINGS: Bones: No fractures or dislocations. Mild bilateral hip joint degeneration. Pelvic ring appears intact. No suspicious bony lesions. Soft tissues: The visualized bowel gas pattern is normal. No suspicious soft tissue calcifications. Atherosclerotic vascular calcifications. IMPRESSION: No acute bony abnormality. Mild bilateral hip joint degeneration. Dictated by: Jalen Yadav M.D. on 12/15/2024 at 12:47 Approved by: Jalen Yadav M.D. on 12/15/2024 at 12:48
[2024-12-15] MEDS: ACETAMINOPHEN 325 MG TABLET 975 MG PO (12:22)
[2024-12-15] MEDS: KETOROLAC 30 MG/ML VIAL IM (12:22)
[2024-12-15] MEDS: HYDROCODONE/ACET 5/325 TABLET 1 TAB PO (14:02)
--- NOTE | 2024-12-15 15:52 | PC.NURSE ---
This RN revitalized patient and noted patient elevated heart rate and blood pressure and immediately informed provider. Provider came and verified heart rate through auscultation and ordered an EKG.
--- NOTE | 2024-12-15 15:54 | EKG_ITS ---
[address] [address] Test Date: 2024-12-15 Pat Name: Steven Hsu Department: [facility] Room: Gender: Male Temperature Regulator Pyrometer: PDV : 1955 Requested By: Order Number: [id number] Reading MD: Karlo Howard Measurements Intervals [place] Rate: 49 P: -14 ID: [id number] QRS: -23 QRSD: 102 T: 19 QT: 524 QTc: 473 Interpretive Statements Sinus bradycardia Electronically Signed On 12-16-2024 18:29:00 PST by Karlo Howard
--- NOTE | 2024-12-15 15:58 | EKG_ITS ---
[address] [address] Test Date: 2024-12-15 Pat Name: Steven Hsu Department: Room: Gender: Male [employer] Officer: [place] : 1955 Requested By: Order Number: [id number] Reading MD: Karlo Howard Measurements Intervals [place] Rate: 40 P: 50 AR: 152 QRS: -24 QRSD: 88 T: 24 QT: 538 QTc: 438 Interpretive Statements Critical Test Result: Low HR Marked sinus bradycardia Electronically Signed On 12-16-2024 18:28:35 PST by Karlo Howard
--- NOTE | 2024-12-15 16:14 | PC.NURSE ---
Physician printing assistant asked this RN to place cardiac set on this patient and then went to consult with physician. Physician printing assistant returns and has this RN cancel all of the order set except telemetry monitoring. Additionally asked to let patient eat and drink.
--- NOTE | 2024-12-15 18:02 | DI.RAD.S_ITS ---
PROCEDURE: XR CHEST 1V INDICATIONS: chest pain TECHNIQUE: One view of the chest was acquired. COMPARISON: [facility], CR, XR CHEST 2V, 02/25/2024, 15:35. FINDINGS: Surgical changes and devices: None. Lungs and pleura: Lungs are clear. No pleural effusions or pneumothorax. Mediastinum: Mediastinal contours appear normal. Heart size is mildly prominent. Bones and chest wall: No suspicious bony lesions. Overlying soft tissues appear unremarkable. IMPRESSION: No acute pulmonary process. Dictated by: Mahnaz Hong M.D. on 12/15/2024 at 18:59 Approved by: Mahnaz Hong M.D. on 12/15/2024 at 18:59
--- NOTE | 2024-12-15 18:02 | PC.NURSE ---
ELIZABETH asked this RN to place the chest pain order set in for this patient minus the aspirin and duplicate orders already in place.
[2024-12-15 18:55] LABS: Add Manual Diff / Slide Review NO; Basophils Absolute Auto 0 /uL (0-100); Basophils Percent Auto 0.2 % (0-2); Eosinophils Absolute Auto 100 /uL (0-450); Eosinophils Percent Auto 0.3 % (2-4); Hematocrit 40.8 % (41-53); Hemoglobin 14.1 g/dL (13.5-17.5); Lymphocytes Absolute Auto 4000 /uL (1100-4500); Lymphocytes Percent Auto 23.8 % (25-40); Mean Corpuscular HGB Conc 34.6 % (30-36); Mean Corpuscular Hemoglobin 33.2 PG (26-34); Monocytes Absolute Auto 1400 /uL (0-900); Monocytes Percent Auto 8.6 % (3-14); Neutrophils Absolute Auto 11200 /uL (1500-7000); Neutrophils Percent Auto 67.1 % (50-75); Platelet Count 197 X10^3/uL (150-400); Red Blood Cell Count 4.24 X10^6/uL (4.5-5.9); Red Cell Distribution Width 13.8 % (11.6-14.8); White Blood Cell Count 16.8 X10^3/uL (4.5-11.0)
[2024-12-15 19:01] LABS: Prothrombin Time 11.5 SECONDS (9.4-12.5)
[2024-12-15 19:04] LABS: PTT Partial Thromboplastin Tim 27 SECONDS (25.1-36.5)
[2024-12-15 19:07] LABS: Alanine Aminotransferase 49 IU/L (<50); Albumin 4.4 g/dL (3.5-5.0); Albumin Globulin Ratio 1.7 (1.0-2.8); Alkaline Phosphatase 50 U/L (38-126); Aspartate Aminotransferase 37 IU/L (17-59); BUN Creatinine Ratio 26.2 (6-22); Bilirubin Total 0.7 mg/dL (0.2-1.3); Blood Urea Nitrogen 33 mg/dL (9-20); Carbon Dioxide 22 mmol/L (22-32); Chloride 103 mmol/L (98-107); Creatine Kinase 39 U/L (55-170); Estimated Glomerular Filt Rate > 60 mL/min (>60); Globulin 2.6 g/dL (1.7-4.1); Glucose 103 mg/dL (80-110); HEMOLYSIS < 15 (0-50); Lipase 67 U/L (23-300); Magnesium 1.9 mg/dL (1.6-2.3); Potassium 4.5 mmol/L (3.4-5.1); Sodium 136 mmol/L (137-145)
[2024-12-15 19:21] LABS: NT-proBNP (BNP-Adult 18+) 2010 pg/mL (<125); Troponin I 0.037 ng/mL (0.01-0.034)
[2024-12-15 21:07] LABS: Troponin I 0.038 ng/mL (0.01-0.034)
[2024-12-15] MEDS: OXYCODONE IR 5 MG TABLET PO (21:17)
[2024-12-15] MEDS: HYDROCODONE/ACET 5/325 PREPACK 1 BOTTLE MISC (21:18)
== END 2024-12-15 21:28 | disposition home or self-care (01) ==
PROVIDERS: Student in an Organized Health Care Education/Training Program; Emergency Provider Emergency Medicine; PCP Physician Assistant
DX: M54.32 Sciatica, left side (principal); R00.1 Bradycardia, unspecified; I10 Essential (primary) hypertension; M51.369 Other intervertebral disc degeneration, lumbar region without mention of lumbar back pain or lower extremity pain; M48.061 Spinal stenosis, lumbar region without neurogenic claudication; F17.200 Nicotine dependence, unspecified, uncomplicated
CPT/HCPCS: 36415; 71045; 73503; 80053; 82550; 83690; 83735; 83880; 84484; 85025; 85610; 85730; 93005; 96372; 99284; J1885

== ENCOUNTER → 2025-08-22 11:10 | Outpatient (CLI) | payer MEDICARE, OTHER, SELFPAY ==
[2025-08-22 13:07] LABS: Hematocrit 40.3 % (41-53); Hemoglobin 14.1 g/dL (13.5-17.5); Mean Corpuscular HGB Conc 34.9 % (30-36); Mean Corpuscular Hemoglobin 33.6 PG (26-34); Mean Corpuscular Volume 96.3 fL (80-100); Platelet Count 227 X10^3/uL (150-400)
[2025-08-22 13:25] LABS: Alanine Aminotransferase 23 IU/L (<50); Albumin 4.2 g/dL (3.5-5.0); Albumin Globulin Ratio 1.6 (1.0-2.8); Alkaline Phosphatase 51 U/L (38-126); Blood Urea Nitrogen 13 mg/dL (9-20); Calcium 9.0 mg/dL (8.4-10.2); Carbon Dioxide 20 mmol/L (22-32); Chloride 111 mmol/L (98-107); Cholesterol 97 mg/dL (140-199); Estimated Glomerular Filt Rate > 60 mL/min (>60); Globulin 2.6 g/dL (1.7-4.1); Glucose 93 mg/dL (70-99); HDL Cholesterol 47 mg/dL (40-60); HEMOLYSIS < 15 (0-50); Potassium 4.2 mmol/L (3.4-5.1); Sodium 146 mmol/L (137-145); Total Protein 6.8 g/dL (6.3-8.2); Triglycerides 130 mg/dL (35-150)
== END ==
PROVIDERS: Family Provider Physician Assistant; PCP Physician Assistant; Referring Provider Internal Medicine Cardiovascular Disease; Visit Provider Internal Medicine Cardiovascular Disease
DX: E78.2 Mixed hyperlipidemia (principal); I10 Essential (primary) hypertension
CPT/HCPCS: 36415; 80053; 80061; 85027